=== PATIENT | female | born 1995 ===

== ENCOUNTER 2021-06-10 00:48 | Inpatient (IN) | payer MEDICAID, OTHER ==
[2021-06-10] MEDS ORDERED: LIDOCAINE (2%) 20 MG/1 ML VIAL 20 ML MDV INFILTRATI ONE (01:47)
[2021-06-10] MEDS ORDERED: miSOPROStol 200 MCG TAB PR PRN (01:47)
[2021-06-10] MEDS ORDERED: OXYTOCIN 10 UNIT/1 ML INJ IM PRN (01:47)
[2021-06-10] MEDS ORDERED: METHYLERGONOVINE MALEATE 0.2 MG/ML VIAL IM PRN (01:47)
[2021-06-10] MEDS ORDERED: LOPERAMIDE 2 MG CAP PO PRN (01:47)
[2021-06-10] MEDS ORDERED: MINERAL OIL 30 ML ORAL LIQD PO PRN (01:47)
[2021-06-10] MEDS ORDERED: CARBOPROST TROMETHAMINE 250 MCG/1 ML INJ IM PRN (01:47)
[2021-06-10] MEDS ORDERED: BUTORPHANOL 2 MG/1 ML INJ IV PRN ×2 (01:47)
[2021-06-10] MEDS ORDERED: TERBUTALINE 1 MG/1 ML INJ SUB-Q PRN (01:47)
[2021-06-10] MEDS ORDERED: ePHEDrine SULFATE 50 MG/1 ML INJ IV PRN (01:47)
[2021-06-10 02:34] LABS: Hematocrit 32.4 % (30.3-42.9); Hemoglobin 11.3 gm/dl (10.1-14.3); Mean Corpuscular HGB Conc 35 % (30-34); Mean Corpuscular Volume 95 fl (79-97); Platelet Count 198 K/mm3 (140-440); Red Blood Count 3.41 M/mm3 (3.65-5.03); Red Cell Distribution Width 13.6 % (13.2-15.2)
[2021-06-10] MEDS ORDERED: DINOPROSTONE 10 MG VAG SUPP VG ONE ×2 (03:47→18:30)
[2021-06-10] MEDS: LACTATED RINGERS 1,000 ML IV SCH ×2 (04:16→19:16)
[2021-06-10] MEDS ORDERED: FAMOTIDINE 20 MG TAB PO PRN (11:00)
[2021-06-10] MEDS ORDERED: ACETAMINOPHEN 325 MG TAB PO PRN (12:03)
--- NOTE | 2021-06-10 12:07 | History and Physical Report ---
History of Present Illness Date of examination: 06/10/21 Chief complaint: decreased movement, GDM, IOL History of present illness: 26 yo G1 at 39w1d c/b history of care outside of the [place], then PNC at [facility], family history of brother with congenital heart de fect and thickened nuchal cord, anemia, A2GDM (on metformin) presenting with decreased movement and contractions for induction of labor for GDM at term. chart reviewed O+ antibody negative Hemoglobin and hematocrit 10.6 and 30.9 Pap normal, rubella immune, VDRL nonreactive Urine culture negative, hepatitis B surface antigen negative, HIV negative Gonorrhea chlamydia negative 1 hour GTT 213 GBS negative Past History Past Medical History: diabetes (gestational) Past Surgical History: no surgical history Family/Genetic History: diabetes, hypertension - Obstetrical History Expected Date of Delivery: 06/14/21 Actual Gestation: 39 Week(s) 3 Day(s) : 1 Medications and Allergies Allergies Allergy/AdvReac Type Severity Reaction Status Date / Time No Known Allergies Allergy Unverified 06/10/21 01:39 Home Medications Medication Instructions Recorded Confirmed Last Taken Type Ferrous Sulfate [Ferrous Sulfate 325 mg PO DAILY 06/10/21 06/10/21 1 Day Ago History 324 MG] ~06/09/21 325 metFORMIN [Glucophage] 500 mg PO QDAY 06/10/21 06/10/21 Unknown History Active Meds: Active Medications Acetaminophen (Acetaminophen 325 Mg Tab) 650 mg PO Q4H PRN PRN Reason: Pain, Mild (1-3) Butorphanol Tartrate (Butorphanol 2 Mg/1 Ml Inj) 1 mg IV Q2H PRN PRN Reason: Pain, Moderate(4-6) LABOR PAIN Butorphanol Tartrate (Butorphanol 2 Mg/1 Ml Inj) 2 mg IV Q2H PRN PRN Reason: Pain , Severe (7-10) Carboprost Tromethamine (Carboprost Tromethamine 250 Mcg/1 Ml Inj) 250 mcg IM ONCE PRN PRN Reason: Uterine Bleeding Ephedrine Sulfate (Ephedrine Sulfate 50 Mg/1 Ml Inj) 10 mg IV Q2M PRN PRN Reason: Hypotension Famotidine (Famotidine 20 Mg Tab) 20 mg PO BID PRN PRN Reason: Indigestion Last Admin: 06/10/21 11:08 Dose: 20 mg Documented by: Lactated Ringer's (Lactated Ringers) 1,000 mls @ 125 mls/hr IV DIRECT NICK Last Admin: 06/10/21 04:16 Dose: 125 mls/hr Documented by: Loperamide HCl (Loperamide 2 Mg Cap) 2 mg PO ONCE PRN PRN Reason: give with Hemabate Methylergonovine Maleate (Methylergonovine Maleate 0.2 Mg/Ml Vial) 0.2 mg IM ONCE PRN PRN Reason: Uterine Bleeding Mineral Oil (Mineral Oil 30 Ml Oral Liqd) 30 ml PO QHS PRN PRN Reason: Constipation Misoprostol (Misoprostol 200 Mcg Tab) 800 mcg NM ONCE PRN PRN Reason: Uterine Bleeding Oxytocin (Oxytocin 10 Unit/1 Ml Inj) 10 unit IM ONCE PRN PRN Reason: Uterine Bleeding Terbutaline Sulfate (Terbutaline 1 Mg/1 Ml Inj) 0.25 mg SUB-Q ONCE PRN PRN Reason: Hyperstimulation/Hypertonicity Review of Systems All systems: negative (expect HPI) - Vital Signs Vital signs: Vital Signs Pulse BP 76 140/85 06/10/21 01:30 06/10/21 01:30 Temp Pulse Resp BP Pulse Ox 98.3 F 75 16 130/73 96 06/10/21 11:10 06/10/21 11:10 06/10/21 11:10 06/10/21 11:10 06/10/21 07:29 - Physical Exam Abdomen: Positive: normal appearance, normal bowel sounds Uterus: Positive: enlarged - Obstetrical FHR: category 1 Uterine Contraction Monitor Mode: External Cervical Dilatation: 1 Uterine Contraction Pattern: Irregular Results Result Diagrams: 06/10/21 02:10 Abnormal lab results 06/10/21 06/10/21 06/10/21 Range/Units 02:10 02:14 06:34 RBC 3.41 L (3.65-5.03) M/mm3 MCH 33 H (28-32) pg MCHC 35 H (30-34) % POC Glucose 111 H 107 H (70-105) mg/dL All other labs normal. Assessment and Plan - Patient Problems (1) Gestational diabetes Current Visit: Yes Status: Acute Plan to address problem: For induction of labor for GDM at term --s/p cervidil #1 at 0415 7/28/21. Proceed with Cervidil until at least 3 cm then transition to Pitocin per protocol for induction of labor --IV pain medication as indicated, epidural is available --Monitor CBGs per routine, insulin as indicated.
[2021-06-10] MEDS: INSULIN REGULAR, HUMAN 100 UNITS/1 ML SUB-Q SCH ×2 (18:18→21:15)
[2021-06-10] MEDS ORDERED: ONDANSETRON 4 MG/2 ML INJ IV PRN (18:30)
[2021-06-11] MEDS: INSULIN REGULAR, HUMAN 100 UNITS/1 ML SUB-Q SCH ×4 (01:35→18:18)
[2021-06-11] MEDS ORDERED: OXYTOCIN DRIP 30,000 MILLIUNITS/500 ML BAG IV ONE (08:52)
--- NOTE | 2021-06-11 09:57 | Progress Note ---
Assessment and Plan A: IUP@ 39.4 wks GDM P: Continuos monitoring Pain med/Epidural prn Start Pitocin per protocal FSBS q4h Anticipate Dr Lazaro consulted Subjective - Subjective Date of service: 06/11/21 Principal diagnosis: IUP@ 39.4 wks Patient reports: movement normal Objective - Vital Signs Vital Signs: Vital Signs - 12hr 06/10/21 06/10/21 06/11/21 23:19 23:20 03:28 Temperature 98.4 F 98.2 F Pulse Rate 60 78 Respiratory Rate Blood Pressure 113/72 121/68 Blood Pressure [Left] O2 Sat by Pulse Oximetry [ Bilateral Throughout] 06/11/21 06/11/21 08:22 08:30 Temperature 98 F Pulse Rate 70 70 Respiratory 16 Rate Blood Pressure 125/74 Blood Pressure 125/74 [Left] O2 Sat by Pulse 98 Oximetry [ Bilateral Throughout] - Exam Breasts: normal Abdomen: Present: normal appearance, soft, normal bowel sounds Vulva: both: normal Uterus: Present: normal FHR: auscultation normal, category 1 Uterine Contraction Monitor Mode: External Cervical Dilatation: 2 (per nurse) Cervical Effacement Percentage: 70 (per nurse) station: -2 Uterine Contraction Pattern: Irregular Uterine Tone Measurement Phase: Resting Uterine Contraction Intensity: Mild Extremities: normal - Labs Labs: Abnormal Labs 06/10/21 06/10/21 06/10/21 02:10 02:14 06:34 RBC 3.41 L MCH 33 H MCHC 35 H POC Glucose 111 H 107 H 06/10/21 14:27 RBC MCH MCHC POC Glucose 117 H Laboratory Results - last 24 hr 06/10/21 06/10/21 06/10/21 09:20 10:27 14:27 POC Glucose 102 117 H Coronavirus (PCR) Negative 06/10/21 06/10/21 06/11/21 18:03 23:16 07:44 POC Glucose 79 84 82 Coronavirus (PCR)
[2021-06-11] MEDS: LACTATED RINGERS 1,000 ML IV SCH ×3 (10:48→17:30)
--- NOTE | 2021-06-11 13:44 | Progress Note ---
Subjective - Subjective Date of service: 06/11/21 Principal diagnosis: IUP@ 39.4 wks Interval history: AROM clear cervix 5cm/100%/-2 plan for epidural FHT Category 1 Wendy Lazaro MD Patient reports: movement normal Objective - Vital Signs Vital Signs: Vital Signs - 12hr 06/11/21 06/11/21 06/11/21 03:28 08:22 08:30 Temperature 98.2 F 98 F Pulse Rate 78 70 70 Respiratory 16 Rate Blood Pressure 121/68 125/74 Blood Pressure 125/74 [Left] O2 Sat by Pulse 98 Oximetry [ Bilateral Throughout] 06/11/21 06/11/21 13:09 13:12 Temperature 97.6 F Pulse Rate 60 60 Respiratory 15 Rate Blood Pressure 117/65 Blood Pressure 117/65 [Left] O2 Sat by Pulse Oximetry [ Bilateral Throughout] - Labs Labs: Abnormal Labs 06/10/21 06/10/21 06/10/21 02:10 02:14 06:34 RBC 3.41 L MCH 33 H MCHC 35 H POC Glucose 111 H 107 H 06/10/21 14:27 RBC MCH MCHC POC Glucose 117 H Laboratory Results - last 24 hr 06/10/21 06/10/21 06/10/21 09:20 14:27 18:03 POC Glucose 117 H 79 Coronavirus (PCR) Negative 06/10/21 06/11/21 06/11/21 23:16 07:44 12:53 POC Glucose 84 82 88 Coronavirus (PCR)
[2021-06-11] MEDS ORDERED: fentaNYL-BUPIV 2 MCG/ML-0.125% 200 MCG/100 ML BAG EPIDURAL ONE (14:26)
[2021-06-11] MEDS ORDERED: NALOXONE 2 MG/2 ML INJ IV PRN (14:30)
[2021-06-11] MEDS ORDERED: ePHEDrine SULFATE 50 MG/1 ML INJ IV PRN (15:00)
[2021-06-11] MEDS ORDERED: fentaNYL-BUPIV 2 MCG/ML-0.125% 200 MCG/100 ML BAG EPIDURAL SCH (15:00)
--- NOTE | 2021-06-11 15:02 | Anesthesia Consultation ---
Anesthesia Consult and Med Hx Date of service: 06/11/21 - Airway Anesthetic Teeth Evaluation: Poor ROM Head & Neck: Adequate Mental/Hyoid Distance: Adequate Mallampati Class: Class II Intubation Access Assessment: Good - Pulmonary Exam CTA: Yes - Cardiac Exam Cardiac Exam: RRR - Pre-Operative Health Status ASA Pre-Surgery Classification: ASA3 Proposed Anesthetic Plan: Epidural - Pulmonary Hx Smoking: No Hx Asthma: No Hx Respiratory Symptoms: No SOB: No COPD: No Home Oxygen Therapy: No Hx Pneumonia: No Hx Sleep Apnea: No - Cardiovascular System Hx Hypertension: No Hx Coronary Artery Disease: No Hx Heart Attack/AMI: No Hx Angina: No Hx Percutaneous Transluminal Coronary Angioplasty (PTCA): No Hx Cardia Arrhythmia: No Hx Pacemaker: No Hx Internal Defibrillator: No Hx Valvular Heart Disease: No Hx Heart Murmur: No Hx Peripheral Vascular Disease: No - Central Nervous System Hx Neuromuscular Disorder: No Hx Seizures: No CVA: No Hx Back Pain: Yes Hx Psychiatric Problems: No - Gastrointestinal Hx Ulcer: No Hx Gastroesophageal Reflux Disease: Yes - Endocrine Hx Renal Disease: No Hx End Stage Renal Disease: No Hx Cirrhosis: No Hx Liver Disease: No Hx Insulin Dependent Diabetes: No Hx Non-Insulin Dependent Diabetes: Yes Hx Thyroid Disease: No Hx Hypothyroidism: No Hx Hyperthyroidism: No - Hematic Hx Anemia: No Hx Sickle Cell Disease: No - Other Systems Hx Alcohol Use: No Hx Substance Use: No Hx Cancer: No Hx Obesity: Yes
--- NOTE | 2021-06-11 15:04 | Progress Note ---
Labor Epidural - Labor Epidural Start Time: 14:35 Stop Time: 14:55 Performed by:: ASHLEIGH KRAUSE Procedure: Patient is requesting a laboring epidural for laboring pain. Patient IDed, H&P reviewed, all questions and concerns were answered, and consent was signed. Timeout was performed at bedside. Patient in sitting position. Sterile prep and drape was performed. [3] ml of 1% lidocaine skin wheal at L[3]- L [4]. 18- gauge Esther epidural needle was advanced to loss of resistance with saline technique 8cm. Negative CSF negative blood. Epidural catheter advanced to [12] centimeters. [NEGATIVE] Aspiration [NEGATIVE] test dose. Sterile dressing applied. Patient tolerated procedure.
[2021-06-11] MEDS ORDERED: miSOPROStol 100 MCG TAB ONE (21:58)
[2021-06-11] MEDS ORDERED: LIDOCAINE (2%) 20 MG/1 ML VIAL 20 ML MDV INFILTRATI ONE (22:17)
[2021-06-11] MEDS ORDERED: LIDOCAINE MPF (2%) 20 MG/1 ML VIAL 5 ML ONE (23:23)
--- NOTE | 2021-06-12 01:05 | Progress Note ---
Assessment and Plan A: IUP@ 39.4wks with GDM diet controlled GBS neg P: Continue monitoring with epidural and Pitocin FSBS Q2hr per Dr Lazaro Anticipate Subjective - Subjective Date of service: 06/12/21 (late entry for 06/11/21@ 6PM) Principal diagnosis: IUP@ 39.4 wks Patient reports: movement normal, contractions Objective - Vital Signs Vital Signs: Vital Signs - 12hr 06/11/21 06/11/21 06/11/21 13:09 13:12 14:23 Temperature 97.6 F Pulse Rate 60 60 68 Respiratory 15 Rate Blood Pressure 117/65 Blood Pressure 117/65 [Left] O2 Sat by Pulse 97 Oximetry 06/11/21 06/11/21 06/11/21 14:25 14:31 14:36 Temperature Pulse Rate 68 76 69 Respiratory Rate Blood Pressure Blood Pressure [Left] O2 Sat by Pulse 94 90 95 Oximetry 06/11/21 06/11/21 06/11/21 14:37 14:41 14:48 Temperature Pulse Rate 78 90 79 Respiratory Rate Blood Pressure 139/84 Blood Pressure [Left] O2 Sat by Pulse 94 98 97 Oximetry 06/11/21 06/11/21 06/11/21 14:53 14:58 15:03 Temperature Pulse Rate 80 56 L 58 L Respiratory Rate Blood Pressure Blood Pressure [Left] O2 Sat by Pulse 97 97 96 Oximetry 06/11/21 06/11/21 06/11/21 16:48 17:16 18:04 Temperature Pulse Rate 60 65 Respiratory 16 Rate Blood Pressure 122/75 Blood Pressure [Left] O2 Sat by Pulse 100 Oximetry 06/11/21 06/11/21 06/11/21 18:09 18:14 18:19 Temperature Pulse Rate 62 55 L 58 L Respiratory Rate Blood Pressure Blood Pressure [Left] O2 Sat by Pulse 100 100 100 Oximetry 06/11/21 06/11/21 06/11/21 18:24 18:29 18:34 Temperature Pulse Rate 63 81 84 Respiratory Rate Blood Pressure Blood Pressure [Left] O2 Sat by Pulse 100 100 100 Oximetry 06/11/21 06/11/21 06/11/21 18:39 18:44 18:49 Temperature Pulse Rate 64 61 64 Respiratory Rate Blood Pressure Blood Pressure [Left] O2 Sat by Pulse 100 100 100 Oximetry 06/11/21 06/11/2121 18:54 18:59 19:04 Temperature Pulse Rate 73 93 H 90 Respiratory Rate Blood Pressure Blood Pressure [Left] O2 Sat by Pulse 100 100 99 Oximetry 06/11/21 06/11/21 06/11/21 19:09 19:14 19:19 Temperature Pulse Rate 83 98 H 82 Respiratory Rate Blood Pressure Blood Pressure [Left] O2 Sat by Pulse 99 99 100 Oximetry 06/11/21 06/11/21 06/11/21 21:03 22:48 23:02 Temperature 98.6 F Pulse Rate 101 H 88 Respiratory Rate Blood Pressure 145/86 145/80 Blood Pressure [Left] O2 Sat by Pulse Oximetry 06/11/21 06/11/21 06/11/21 23:17 23:26 23:31 Temperature Pulse Rate 81 83 83 Respiratory Rate Blood Pressure 146/80 Blood Pressure [Left] O2 Sat by Pulse 99 96 Oximetry 06/11/21 06/11/21 06/11/21 23:32 23:36 23:41 Temperature Pulse Rate 80 80 84 Respiratory Rate Blood Pressure 134/73 Blood Pressure [Left] O2 Sat by Pulse 96 95 Oximetry 06/11/21 06/11/21 06/11/21 23:46 23:47 23:51 Temperature Pulse Rate 81 78 81 Respiratory Rate Blood Pressure 131/75 Blood Pressure [Left] O2 Sat by Pulse 97 96 Oximetry 06/11/21 06/11/21 06/12/21 23:56 23:59 00:01 Temperature Pulse Rate 80 82 80 Respiratory Rate Blood Pressure Blood Pressure [Left] O2 Sat by Pulse 95 94 96 Oximetry 06/12/21 06/12/21 06/12/21 00:02 00:05 00:06 Temperature Pulse Rate 83 82 88 Respiratory Rate Blood Pressure 137/83 Blood Pressure [Left] O2 Sat by Pulse 94 96 Oximetry 06/12/21 06/12/21 06/12/21 00:11 00:15 00:16 Temperature Pulse Rate 84 83 84 Respiratory Rate Blood Pressure Blood Pressure [Left] O2 Sat by Pulse 96 94 97 Oximetry 06/12/21 06/12/21 06/12/21 00:18 00:21 00:26 Temperature Pulse Rate 80 83 89 Respiratory Rate Blood Pressure 115/56 Blood Pressure [Left] O2 Sat by Pulse 97 98 Oximetry 06/12/21 06/12/21 06/12/21 00:31 00:32 00:36 Temperature Pulse Rate 90 86 92 H Respiratory Rate Blood Pressure 124/59 Blood Pressure [Left] O2 Sat by Pulse 98 98 Oximetry 06/12/21 06/12/21 06/12/21 00:41 00:46 00:47 Temperature Pulse Rate 88 91 H 86 Respiratory Rate Blood Pressure 127/58 Blood Pressure [Left] O2 Sat by Pulse 97 97 Oximetry 06/12/21 06/12/21 00:51 00:55 Temperature Pulse Rate 90 96 H Respiratory Rate Blood Pressure Blood Pressure [Left] O2 Sat by Pulse 98 93 Oximetry - Exam Breasts: normal Abdomen: Present: normal appearance, soft, normal bowel sounds Vulva: both: normal Uterus: Present: normal FHR: category 1 Uterine Contraction Monitor Mode: External Cervical Dilatation: 9 Cervical Effacement Percentage: 100 station: +1 Uterine Contraction Pattern: Regular Uterine Tone Measurement Phase: Resting Uterine Contraction Intensity: Strong/Firm Extremities: normal - Labs Labs: Abnormal Labs 06/10/21 06/10/21 06/10/21 02:10 02:14 06:34 RBC 3.41 L MCH 33 H MCHC 35 H POC Glucose 111 H 107 H 06/10/21 14:27 RBC MCH MCHC POC Glucose 117 H Laboratory Results - last 24 hr 06/11/21 06/11/21 06/11/21 07:44 12:53 18:13 POC Glucose 82 88 96 06/11/21 20:27 POC Glucose 94
[2021-06-12] MEDS ORDERED: LANOLIN/ZINC/DIMETHICONE (LANSINOH) 7 GM TP PRN (01:07)
[2021-06-12] MEDS ORDERED: MAGNESIUM HYDROXIDE (MOM) ORAL LIQD UDC PO PRN (01:07)
[2021-06-12] MEDS ORDERED: PROMETHAZINE 25 MG RECT SUPP PR PRN (01:07)
[2021-06-12] MEDS ORDERED: diphenhydrAMINE 25 MG CAP PO PRN (01:07)
[2021-06-12] MEDS ORDERED: PROMETHAZINE 25 MG TAB PO PRN (01:07)
[2021-06-12] MEDS ORDERED: ONDANSETRON 4 MG/2 ML INJ IV PRN (01:07)
[2021-06-12] MEDS ORDERED: oxyCODONE /ACETAMINOPHEN 5-325MG TAB PO PRN (01:07)
[2021-06-12] MEDS ORDERED: BENZOCAINE/MENTHOL 20/0.5% TOP SPRAY 56 GM TP PRN (01:07)
--- NOTE | 2021-06-12 01:19 | Event Note ---
Date: 06/12/21 I was called by TIP Huizar at 10:22PM for repair of a presumed 3rd degree laceration following episiotomy. Pt was evaluated with rectovaginal exam by me and diagnosed with 4th degree vaginal laceration with packing x4 sponges and active bleed. The right lateral episiotomy extended around the anus on the right and the anal sphincter already completely retracted since of baby at 9:52pm. With my left index finger in the rectum, an Interrupted 3-0 vicryl suture placed x2 above transparent rectal mucosa and multiple interrupted 3-0 sutures placed around the anus. Every attempt made to retrieve the retracted anal sphincter that was completely transected and same reapproximated with overlap using 0-vicryl interrupted suture in a alma pattern. Pt also had extension medially towards cervix and it had an "M" shaped sulcus laceration that was active bleeding. Same repaired in running locked 3-0 vicryl and 2-0 chromic for areas where her tissue was friable. Pt although with epidural off, it was still effective and no additional local anesthesia required. Pt sustained bilateral labia lacerations for which Gaye repaired the right labia (please see her noted) and I repaired the left labia using figure of 8 suture x1. Excellent hemostasis achieved. Pt given ancef 2gm for contamination during repair of 4th degree laceration and will continue same to enhance wound healing for 1-2days. Please see delivery note of TIP for QBL. While in the room, Welder Machine Operator also stated that the peds were evaluating baby with xray since one of the left extremity was decreased in movement. The peds brought baby back to the room and stated baby had no fractures. Patient and present counseled on the need for proper hygiene, no tub or sitz bath, and to take augmentin for 1wk to prevent wound breakdown. All questions encouraged and answered.
--- NOTE | 2021-06-12 01:25 | Procedure Note ---
<JEWEL AHUMADA - Last Filed: 06/12/21 02:48> OB Delivery Note - Delivery Date of Delivery: 06/11/21 Surgeon: JEWEL AHUMADA Estimated blood loss: other (450cc) - Vaginal Delivery presentation: vertex Delivery position: OA Intrapartum events: mult.variable deceleratio, shoulder dystocia, other(please specify) (GDM) Delivery induction: cervidil Delivery augmentation: pitocin Delivery monitor: external FHT, external uterine Route of delivery: Delivery placenta: spontaneous Delivery cord: nuchal cord, 3 umbilical vessels Episiotomy: mediolateral Delivery laceration: 4th degree Delivery repair: vicryl, chromic Anesthesia: epidural Delivery comments: of a viable male infant in OA position. Loose nuchal cord x 1 was reduced over 's head then head was delivered with ease. After Unsuccessful attemps to deliver infant's shoulders utilizing routine axial traction, a shoulder dystocia was called and help was summoned. Pt was placed in Chaz position and suprapubic pressure was applied by nurse. A right mediolateral epis was cut and Flores screw maneuver was used w/o success. Both shoulders were delivered after delivery of left posterior arm at 5 min. Immediately after delivery 's cord was clamped x 2 and cut and placed in warmer for an initial assess by NICU nurses. 4/7. Cord blood was obtained. Spontaneous delivery of an intact placenta with 3CV. Fundus was boggy intermittently @ U2 with light trickle of vag blood. Homeostasis was maintained with Cytotec 800 mcg AR and Methergine 0.2 mg IM x1. An exploration of tears revealed a right mediolateral epis with a 4th degree extension and tori labial tears. Right bleeding labial te ar was repaired by under epidural anesthesia using a 3-[address]- 1. Other repairs were completed by Dr Murphy. Please see MD's note. FW 4275 Gms. QBL 798 per nurse. Mom and baby were left in stable condition with nurse. - Infant A at 1 minute: 4 at 5 minutes: 7 Gender: Male (FW 4275 Gms) <ALMITA MURPHY - Last Filed: 06/12/21 08:18> OB Delivery Note - Vaginal Delivery comments: the description was recorded in my note with an active bleed NOT trickle and the laceration was lateral. That is the record by me
[2021-06-12] MEDS: IBUPROFEN 800 MG TAB PO SCH ×3 (02:25→18:01)
[2021-06-12] MEDS: INSULIN REGULAR, HUMAN 100 UNITS/1 ML SUB-Q SCH ×2 (06:01→09:15)
[2021-06-12] MEDS: LACTATED RINGERS 1,000 ML IV SCH (08:17)
--- NOTE | 2021-06-12 08:24 | Progress Note ---
Assessment and Plan A: S/P Shoulder dystocia PPH with 4th degree lac P: Continue routine pp care Continue abt and colace Pain med prn Awaiting H&H D/C home within 24-48 hrs if stable Subjective - Subjective Date of service: 06/12/21 Principal diagnosis: s/p Patient reports: appetite normal, voiding normally, pain well controlled, other (Graves to bsd bag with adq amts cl straw colored urine in bag. ) [place]: nursing well Objective - Vital Signs Latest vital signs: Vital Signs Temp Pulse Resp BP BP Pulse Ox Pulse Ox 06/12/21 05:05 100 06/12/21 04:50 98.3 F 85 18 120/77 100 06/12/21 02:25 18 06/12/21 00:55 96 H 93 06/12/21 00:51 90 98 06/12/21 00:47 86 127/58 06/12/21 00:46 91 H 97 06/12/21 00:41 88 97 06/12/21 00:36 92 H 98 06/12/21 00:32 86 124/59 06/12/21 00:31 90 98 06/12/21 00:26 89 98 06/12/21 00:21 83 97 06/12/21 00:18 80 115/56 06/12/21 00:16 84 97 06/12/21 00:15 83 94 06/12/21 00:11 84 96 06/12/21 00:06 88 96 06/12/21 00:05 82 94 06/12/21 00:02 83 137/83 06/12/21 00:01 80 96 06/11/21 23:59 82 94 06/11/21 23:56 80 95 06/11/21 23:51 81 96 06/11/21 23:47 78 131/75 06/11/21 23:46 81 97 06/11/21 23:41 84 95 06/11/21 23:36 80 96 06/11/21 23:32 80 134/73 06/11/21 23:31 83 96 06/11/21 23:26 83 99 06/11/21 23:17 81 146/80 06/11/21 23:02 88 145/80 06/11/21 22:48 101 H 145/86 06/11/21 21:03 98.6 F 07/29/21 19:19 82 100 06/11/21 19:14 98 H 99 06/11/21 19:09 83 99 06/11/21 19:04 90 99 06/11/21 18:59 93 H 100 06/11/21 18:54 73 100 06/11/21 18:49 64 100 06/11/21 18:44 61 100 06/11/21 18:39 64 100 06/11/21 18:34 84 100 06/11/21 18:29 81 100 06/11/21 18:24 63 100 06/11/21 18:19 58 L 100 06/11/21 18:14 55 L 100 06/11/21 18:09 62 100 06/11/21 18:04 65 100 06/11/21 17:16 16 06/11/21 16:48 60 122/75 06/11/21 15:03 58 L 96 06/11/21 14:58 56 L 97 06/11/21 14:53 80 97 06/11/21 14:48 79 139/84 97 06/11/21 14:41 90 98 06/11/21 14:37 78 94 06/11/21 14:36 69 95 06/11/21 14:31 76 90 06/11/21 14:25 68 94 06/11/21 14:23 68 97 06/11/21 13:12 60 117/65 06/11/21 13:09 97.6 F 60 15 117/65 06/11/21 08:30 70 125/74 06/11/21 08:22 98 F 70 16 125/74 98 Intake and Output 06/11/21 06/12/21 06/12/21 22:59 06:59 14:59 Intake Total 731.25 1000 Output Total 500 Balance 731.25 1000 -500 Intake: IV 731.25 1000 Lactated Ringers 1,000 ml 731.25 1000 @ 125 mls/hr IV DIRECT NICK Rx#:[id number] Output: Urine 500 Indwelling Catheter 500 Other: Total, Output Amount 500 Estimated Blood Loss 800 - Exam Breasts: Present: normal Abdomen: Present: normal appearance, soft, normal bowel sounds Vulva: both: normal Uterus: Present: normal, firm, fundal height below umbilicus Extremities: Present: normal Incision: Present: normal, intact - Labs Labs: Abnormal lab results 06/12/21 Range/Units 05:54 POC Glucose 148 H (70-105) mg/dL
[2021-06-12] MEDS: DOCUSATE SODIUM 100 MG CAP PO SCH (09:12)
[2021-06-12] MEDS: FERROUS SULFATE 325 MG TAB PO SCH (09:12)
[2021-06-12] MEDS: WITCH HAZEL/ GLYCERIN PAD TP PRN (09:13)
--- NOTE | 2021-06-12 09:18 | Event Note ---
Date: 06/12/21 Pt evaluated and perineal sutures intact, pt has bilateral mild thigh edema but no erythema to perineum or labia. Lochia moderate amount and dark in color without clots. Right side of labia with mild tenderness and left side normal. Graves cath was just removed by AM nurse with 500cc per her report. Pt has not voided as yet. Nurse instructed to give pt percocet for pain and encouraged out of bed ambulation. CBC result post delivery will be evaluated. Maternal temp was 99.1 per axilla. Baby nurse also present in the room was evaluating baby and I asked how is the baby moving both arms and both nurses (pt and baby nurses) state that they were not informed shoulder dystocia during delivery. I asked baby nurse to have leather novelty parts cutter evaluate and treat baby accordingly with the left arm being the affected arm with diminished tone. Emotional support given to both parents. All questions encouraged and answered
[2021-06-12] MEDS ORDERED: NON-FORMULARY EACH (Ferrous Sulfate [Ferrous Sulfate 324 Mg] 324 MG Tablet.Dr) PO SCH (10:00)
[2021-06-12 10:29] LABS: Basophils % (Auto) 0.2 % (0.0-1.8); Hematocrit 27.3 % (30.3-42.9); Hemoglobin 9.5 gm/dl (10.1-14.3); Lymphocytes # (Auto) 1.6 K/mm3 (1.2-5.4); Lymphocytes % (Auto) 10.9 % (13.4-35.0); Mean Corpuscular HGB Conc 35 % (30-34); Mean Corpuscular Volume 95 fl (79-97); Monocytes # (Auto) 1.1 K/mm3 (0.0-0.8); Monocytes % (Auto) 7.5 % (0.0-7.3); Platelet Count 167 K/mm3 (140-440); Red Blood Count 2.89 M/mm3 (3.65-5.03); Red Cell Distribution Width 13.2 % (13.2-15.2)
[2021-06-12 14:06] LABS: Hematocrit 27.3 % (30.3-42.9); Hemoglobin 9.3 gm/dl (10.1-14.3)
--- NOTE | 2021-06-12 15:13 | Post Anesthesia Evaluation ---
- Post Anesthesia Evaluation Patient Participated: Yes Airway Patent: Yes Stable Respiratory Function: Yes Nausea/Vomiting: No Temp > 96.8F: Yes Pain Manageable: Yes Adequeate Hydration: Yes Anesthesia Complications: No Block Receding Appropriately: Yes Patient on Ventilator: No
[2021-06-13] MEDS: DOCUSATE SODIUM 100 MG CAP PO SCH ×2 (00:14→09:12)
[2021-06-13] MEDS: IBUPROFEN 800 MG TAB PO SCH ×2 (02:22→09:12)
[2021-06-13] MEDS: FERROUS SULFATE 325 MG TAB PO SCH (09:12)
--- NOTE | 2021-06-13 09:39 | Progress Note ---
Subjective - Subjective Date of service: 06/13/21 Principal diagnosis: s/p Interval history: meets d/c criteria sutures in place +ve flatus and BM discharge instructions reviewed Wendy Lazaro MD Patient reports: appetite normal, voiding normally, pain well controlled, ambulating normally [place]: doing well Objective - Vital Signs Latest vital signs: Vital Signs Temp Pulse Resp BP BP Pulse Ox Pulse Ox 06/13/21 09:12 16 06/13/21 07:46 97.7 F 67 16 122/76 96 06/13/21 02:23 98 06/13/21 01:01 97.8 F 82 20 115/72 96 06/12/21 19:20 99 06/12/21 15:58 97.6 F 84 18 120/74 96 Intake and Output 06/12/21 06/13/21 06/13/21 23:59 07:59 15:59 Intake Total 120 860 Output Total 1200 650 Balance -1080 210 Intake: IV 100 ceFAZolin 2 GM In NaCl 0. 100 9% 100 ml @ 200 mls/hr IV Q8H [facility] Rx#:[id number] Oral 120 400 Intake, Free Water 360 Output: Urine 1200 650 Void 1200 650 Other: Total, Intake Amount 120 200 Total, Output Amount 300 300 - Labs Labs: Abnormal lab results 06/12/21 06/12/21 06/12/21 Range/Units 09:58 13:32 16:00 WBC 14.9 H (4.5-11.0) K/mm3 RBC 2.89 L (3.65-5.03) M/mm3 Hgb 9.5 L 9.3 L (10.1-14.3) gm/dl Hct 27.3 L 27.3 L (30.3-42.9) % MCH 33 H (28-32) pg MCHC 35 H (30-34) % Lymph % (Auto) 10.9 L (13.4-35.0) % [place] % (Auto) 7.5 H (0.0-7.3) % [place] # (Auto) 1.1 H (0.0-0.8) K/mm3 Seg Neutrophils % 81.4 H (40.0-70.0) % Seg Neutrophils # 12.1 H (1.8-7.7) K/mm3 POC Glucose 144 H (70-105) mg/dL 06/12/21 Range/Units 22:33 WBC (4.5-11.0) K/mm3 RBC (3.65-5.03) M/mm3 Hgb (10.1-14.3) gm/dl Hct (30.3-42.9) % MCH (28-32) pg MCHC (30-34) % Lymph % (Auto) (13.4-35.0) % [place] % (Auto) (0.0-7.3) % [place] # (Auto) (0.0-0.8) K/mm3 Seg Neutrophils % (40.0-70.0) % Seg Neutrophils # (1.8-7.7) K/mm3 POC Glucose 118 H (70-105) mg/dL
[2021-06-13] MEDS: WITCH HAZEL/ GLYCERIN PAD TP PRN (14:39)
--- NOTE | 2021-06-13 14:57 | Discharge Summary ---
Providers - Providers Date of Admission: 06/10/21 12:03 Attending physician: NICKIE POLK MD Primary care physician: NICKIE POLK MD Hospitalization Delivery: Laceration: 4th degree Condition at discharge: Stable Disposition: DC-01 TO HOME OR SELFCARE - Discharge Diagnoses (1) (spontaneous vaginal delivery) Status: Acute (2) Fourth degree perineal laceration Status: Acute Plan - Discharge Medications Prescriptions: Amoxicillin/Potassium Clav [Augmentin 875-125 Tablet] 1 each PO BID 7 Days #14 tablet Ibuprofen [Motrin] 800 mg PO Q8HR PRN 21 Days #40 tablet PRN Reason: Pain, Mild (1-3) oxyCODONE /ACETAMINOPHEN [Percocet 5/325] 1 tab PO Q4HR 14 Days #20 tab - Provider Discharge Summary Additional instructions: [] Smoking cessation referral if applicable(refer to patient education folder for contact #) [] Refer to [facility]'s [facility] Booklet Call your doctor immediately for: * Fever > 100.5 * Heavy vaginal bleeding ( >1 pad per hour) * Severe persistent headache * Shortness of breath * Reddened, hot, painful area to leg or breast * Drainage or odor from incision. * Keep incision clean and dry at all times and follow doctor's instructions regarding bathing/showering - Follow up plan Follow up: NICKIE POLK MD [Primary Care Provider] - 7 Days Forms: [facility] Discharge Summary
[2021-06-13 16:24] VITALS: BP 138/78
== END 2021-06-13 16:45 | disposition home or self-care (01) | DRG 768 ==
LOC: TRG 00:48 → APU 00:57 → LD 02:51 → TRG 12:03 → OB 06-12 04:54
PROC: 10E0XZZ Delivery of Products of Conception, External Approach (ICD-10-PCS; principal; 2021-06-12)
PROC: 0DQP0ZZ Repair Rectum, Open Approach (ICD-10-PCS; 2021-06-12)
PROC: 3E0R3BZ Introduction of Anesthetic Agent into Spinal Canal, Percutaneous Approach (ICD-10-PCS; 2021-06-12)
PROC: 00HU33Z Insertion of Infusion Device into Spinal Canal, Percutaneous Approach (ICD-10-PCS; 2021-06-12)
PROC: 0W8NXZZ Division of Female Perineum, External Approach (ICD-10-PCS; 2021-06-12)
PROC: 3E033VJ Introduction of Other Hormone into Peripheral Vein, Percutaneous Approach (ICD-10-PCS; 2021-06-12)
DX: O24.429 Gestational diabetes mellitus in childbirth, unspecified control (principal); Z37.0 Single live birth; O70.3 Fourth degree perineal laceration during delivery; Z20.822 Contact with and (suspected) exposure to COVID-19; O99.214 Obesity complicating childbirth; O76 Abnormality in fetal heart rate and rhythm complicating labor and delivery; O66.0 Obstructed labor due to shoulder dystocia; Z3A.39 39 weeks gestation of pregnancy; Z82.49 Family history of ischemic heart disease and other diseases of the circulatory system; Z83.3 Family history of diabetes mellitus
CPT/HCPCS: 36415; 59200; 82962; 85014; 85018; 85025; 85027; 86592; 86850; 86900; 86901; G0378; J0595; J0690; J2210; J2405; J2590; J7120; Q0169; U0003